=== PATIENT | male | born 1950 | race Caucasian/White ===

== ENCOUNTER 2020-11-26 06:03 | Day surgery (SDC) | payer MEDICARE, OTHER ==
[2020-11-24 10:21] LABS: COVID AG,FIA SOURCE NASOPHARYNGEAL
[~2020-11-26] VITALS: Ht 188 cm; Wt 119.5 kg
[~2020-11-26 06:03] MED LIST: ALBU8HFA IH; ASCO500 PO; ASPI-1450 PO; AZAT50TA21 PO; AZEL137S8 NASAL; BENA10TA76 PO; BUPR-93 PO; CETI-450 PO; CHOL400T56 PO; CYAN50009 PO; DICL100G31 TP; ESOM20CA31 PO; FLUT1BLS IH; GABA-1181 PO; HYDR25TA2 PO; IBUP-2759 PO; IPRAHFA IH; LIFI1DRO OU; MAGN250T10 PO; MULT-1077 PO; MUPI1OIN5 TP; NETA2.5D3 OU; PRAV10TA39 PO; PROM6.2514 PO; SELE120S2 TP; SERT-162 PO; SUCR1TAB28 PO; TEST200V22 IM
[2020-11-26] MEDS ORDERED: LIDOCAINE 2% 30 ML JELLY TP ONE (06:04)
[2020-11-26] MEDS ORDERED: LIDOCAINE 4% 50 ML SOLUTION TP ONE (06:04)
[2020-11-26] MEDS ORDERED: BENZOCAINE 20% 50 MCG/SPRAY 57 GM TP ONE (06:04)
[2020-11-26] MEDS ORDERED: ALBUTEROL SULFATE 2.5 MG/0.5 ML NEB SOLUTION NEB ONE (06:04)
[2020-11-26] MEDS ORDERED: SODIUM CHLORIDE 0.9% 1,000 ML ONE (06:09)
[2020-11-26] MEDS ORDERED: SODIUM CHLORIDE 0.9% 1,000 ML IV ONE (06:30)
[2020-11-26] MEDS ORDERED: FentaNYL CITRATE PF 100 MCG/2 ML VIAL ONE (07:25)
[2020-11-26] MEDS ORDERED: MIDAZOLAM HCL 5 MG/ML VIAL ONE (07:25)
[2020-11-26] MEDS ORDERED: MethylPREDNISolone SOD SUCC 125 MG/2 ML VIAL IVP ONE (09:00)
[2020-11-26] MEDS ORDERED: MethylPREDNISolone SOD SUCC 125 MG/2 ML VIAL ONE (09:56)
[2020-11-26] MEDS ORDERED: OXYGEN THERAPY IH SCH (20:00)
== END 2020-11-26 11:55 | disposition home or self-care (01) ==
LOC: SURGERY 06:03
PROVIDERS: ATTEND Internal Medicine Critical Care Medicine
DX: J38.4 Edema of larynx (principal); B37.0 Candidal stomatitis; E78.00 Pure hypercholesterolemia, unspecified; F32.9 Major depressive disorder, single episode, unspecified; Z86.73 Personal history of transient ischemic attack (TIA), and cerebral infarction without residual deficits; Z85.828 Personal history of other malignant neoplasm of skin; Z79.899 Other long term (current) drug therapy; Z98.890 Other specified postprocedural states
CPT/HCPCS: 31623; 31624; 71045; 87015; 87070; 87101; 87206; 87220; 87426; 88108; 88184; 88185; 88312; C9803; J2250; J2930; J3010; J7030; J7613; Z7610